=== PATIENT | male | born 2000 | race African-American/Black ===

== ENCOUNTER 2019-03-10 03:26 | Emergency (ER) | payer OTHER ==
[~2019-03-10] VITALS: Ht 195.6 cm; Wt 73.9 kg
[2019-03-10 03:33] VITALS: Ht 195.6 cm; Wt 73.9 kg
[2019-03-10 04:31] VITALS: BP 132/72
== END 2019-03-10 04:25 | disposition home or self-care (01) ==
LOC: ED 03:26
DX: S63.92XA Sprain of unspecified part of left wrist and hand, initial encounter (principal); W23.0XXA Caught, crushed, jammed, or pinched between moving objects, initial encounter; Y93.89 Activity, other specified; Y92.89 Other specified places as the place of occurrence of the external cause; Y99.8 Other external cause status
CPT/HCPCS: Q0092